=== PATIENT | female | born 1940 | race Two or more races ===

== ENCOUNTER 2021-09-02 16:35 | Inpatient (IN) | payer MEDICARE, MEDICAID ==
[~2021-09-02] VITALS: Ht 162.6 cm; Wt 64.0 kg
[~2021-09-02 16:35] MED LIST: AMLO1TAB15 PO; ASPI-1497 PO; ATOR10TA69 PO; B12 PO; NEBI5TAB3 PO
[2021-09-02 19:51] LABS: HEMATOCRIT. 34.6 % (36.0-48.0); HEMOGLOBIN. 11.2 g/dL (12.0-16.0); MEAN CORPUSCULAR HEMOGLOBIN 28.3 pg (28.0-32.0); MEAN CORPUSCULAR VOLUME 87.5 fL (81.0-99.0); MEAN PLATELET VOLUME 8.4 fl (7.4-10.4); PLATELET 178 x1000/uL (130-400); RED BLOOD CELL COUNT 3.95 mill/uL (4.2-5.4); RED CELL DISTRIBUTION WIDTH 15.6 % (11.6-14.6)
[2021-09-02 20:00] LABS: CHLORIDE 99 mEq/L (98-107)
[2021-09-02 21:09] LABS: PLATELET ESTIMATE NORMAL
[2021-09-03 07:48] LABS: CLARITY URINE CLEAR (CLEAR); COLOR URINE YELLOW (YELLOW); KETONES URINE NEGATIVE (NEGATIVE); LEUKOCYTE ESTERASE URINE NEGATIVE (NEGATIVE); NITRITE URINE NEGATIVE (NEGATIVE); OCCULT BLOOD URINE NEGATIVE (NEGATIVE); PROTEIN URINE NEGATIVE (NEGATIVE); SPECIFIC GRAVITY URINE 1.011 (1.005-1.030)
[2021-09-03] MEDS ORDERED: MAGNESIUM/ALUMINUM HYDROXIDE/SIMETHICONE 30ML UDC PO PRN (11:00)
[2021-09-03] MEDS ORDERED: ONDANSETRON HCL 4MG/2ML INJ IV PRN (11:00)
[2021-09-03] MEDS ORDERED: HYDROCODONE/ACETAMINOPHEN 5/325MG TABLET PO PRN (11:00)
[2021-09-03] MEDS ORDERED: ACETAMINOPHEN 650MG SUPP PR PRN (11:00)
[2021-09-03] MEDS ORDERED: DIPHENHYDRAMINE 50MG/ML VIAL IV PRN (11:00)
[2021-09-03] MEDS ORDERED: CLONIDINE 0.1MG TABLET PO PRN (11:00)
[2021-09-03] MEDS ORDERED: NA PHOS,M-B/NA PHOS,DI-BA ENEMA 118ML PR PRN (11:00)
[2021-09-03] MEDS ORDERED: GUAIFENESIN 200MG/10ML SUGAR FREE UDC PO PRN (11:00)
[2021-09-03] MEDS ORDERED: DOCUSATE SODIUM 100MG CAPSULE PO PRN (11:00)
[2021-09-03] MEDS ORDERED: LORAZEPAM 0.5MG TABLET PO PRN (11:00)
[2021-09-03] MEDS ORDERED: IPRATROPIUM/ALBUTEROL 0.5-3(2.5)MG/3ML NEB NEB PRN (11:00)
[2021-09-03] MEDS ORDERED: ACETAMINOPHEN 325MG TABLET PO PRN (11:00)
[2021-09-03 12:00] VITALS: BP 119/69
[2021-09-03] MEDS: FUROSEMIDE 40MG/4ML VIAL IV SCH (13:08)
[2021-09-03] MEDS: ASPIRIN 81MG EC TABLET PO SCH (13:08)
[2021-09-03] MEDS: ENOXAPARIN 30MG/0.3ML SYR SUBCUT SCH (13:08)
[2021-09-03 15:55] VITALS: BP 119/69
[2021-09-03 16:00] VITALS: BP 104/61
[2021-09-03] MEDS: MEGESTROL ACETATE 400 MG/10 ML UDC PO SCH (17:59)
[2021-09-03 18:31] LABS: INR 1.4; PROTHROMBIN TIME 14.6 sec (9.6-11.0)
[2021-09-03 20:00] VITALS: BP 106/52
[2021-09-03] MEDS ORDERED: FAMOTIDINE 20MG TABLET PO SCH (21:00)
[2021-09-03] MEDS ORDERED: ATORVASTATIN CALCIUM 10MG TABLET PO SCH (21:00)
[2021-09-04] VITALS: BP 124/58
[2021-09-04 02:30] LABS: *AMPHETAMINES SCREEN URINE NEGATIVE (NEGATIVE); *BARBITURATES SCREEN URINE NEGATIVE (NEGATIVE); *BENZODIAZEPINES SCREEN URINE NEGATIVE (NEGATIVE); *COCAINE SCREEN URINE NEGATIVE (NEGATIVE)
[2021-09-04 02:31] LABS: CANNABINOID URINE SCREEN NEGATIVE (NEGATIVE); METHADONE URINE SCREEN NEGATIVE (NEGATIVE); OPIATES URINE SCREEN NEGATIVE (NEGATIVE); PHENCYCLIDINE URINE SCREEN NEGATIVE (NEGATIVE)
[2021-09-04 04:00] VITALS: BP 135/65
[2021-09-04 06:58] LABS: HEMATOCRIT. 33.1 % (36.0-48.0); HEMOGLOBIN. 10.8 g/dL (12.0-16.0); MEAN CORPUSCULAR HEMOGLOBIN 28.6 pg (28.0-32.0); MEAN CORPUSCULAR VOLUME 87.4 fL (81.0-99.0); MEAN PLATELET VOLUME 8.5 fl (7.4-10.4); PLATELET 164 x1000/uL (130-400); RED BLOOD CELL COUNT 3.79 mill/uL (4.2-5.4); RED CELL DISTRIBUTION WIDTH 15.5 % (11.6-14.6)
[2021-09-04 07:03] LABS: CHLORIDE 104 mEq/L (98-107)
[2021-09-04 08:00] VITALS: BP 132/75
[2021-09-04] MEDS: FUROSEMIDE 40MG/4ML VIAL IV SCH (08:15)
[2021-09-04] MEDS: ENOXAPARIN 30MG/0.3ML SYR SUBCUT SCH (08:15)
[2021-09-04] MEDS: ASPIRIN 81MG EC TABLET PO SCH (08:15)
[2021-09-04] MEDS: MEGESTROL ACETATE 400 MG/10 ML UDC PO SCH (08:26)
[2021-09-04] MEDS ORDERED: AMLODIPINE 2.5MG TABLET PO SCH (09:00)
[2021-09-04 10:29] LABS: PLATELET ESTIMATE NORMAL
[2021-09-04 12:00] VITALS: BP 125/55
[2021-09-04] MEDS ORDERED: FURO-151 PO (15:02)
[2021-09-04 15:04] VITALS: BP 125/55
[2021-09-04] MEDS ORDERED: FUROSEMIDE 40MG/4ML VIAL ONE (15:26)
[2021-09-04 15:55] VITALS: BP 137/58
[2021-09-04] MEDS ORDERED: FUROSEMIDE 40MG/4ML VIAL IV SCH (17:00)
[2021-09-04] MEDS ORDERED: APIX2.5T MT (17:28)
== END 2021-09-04 16:25 | disposition home or self-care (01) | DRG 682 ==
LOC: ER 16:35 → MICUSO 22:07 → EDBEDREQ 22:25 → 8WST 09-03 11:10
PROVIDERS: ADMIT Internal Medicine; ATTEND Internal Medicine
DX: N17.9 Acute kidney failure, unspecified (principal); I50.43 Acute on chronic combined systolic (congestive) and diastolic (congestive) heart failure; I13.0 Hypertensive heart and chronic kidney disease with heart failure and stage 1 through stage 4 chronic kidney disease, or unspecified chronic kidney disease; I48.20 Chronic atrial fibrillation, unspecified; E78.00 Pure hypercholesterolemia, unspecified; D64.9 Anemia, unspecified; E78.5 Hyperlipidemia, unspecified; I25.10 Atherosclerotic heart disease of native coronary artery without angina pectoris; I08.1 Rheumatic disorders of both mitral and tricuspid valves; I27.20 Pulmonary hypertension, unspecified; I49.9 Cardiac arrhythmia, unspecified; I70.0 Atherosclerosis of aorta; N18.9 Chronic kidney disease, unspecified; I25.2 Old myocardial infarction; F17.210 Nicotine dependence, cigarettes, uncomplicated; Z79.01 Long term (current) use of anticoagulants; Z79.899 Other long term (current) drug therapy; Z86.73 Personal history of transient ischemic attack (TIA), and cerebral infarction without residual deficits; Z79.82 Long term (current) use of aspirin
CPT/HCPCS: 36415; 71045; 71250; 80048; 80053; 80305; 81003; 82550; 82553; 83880; 84443; 84484; 85025; 87077; 93005; 93306; 93970; 97162; 99285; J1650; J1940

== ENCOUNTER 2021-10-14 16:29 | Emergency (ER) | payer MEDICARE, MEDICAID ==
[~2021-10-14] VITALS: Ht 152.4 cm; Wt 66.0 kg
[~2021-10-14 16:29] MED LIST changes: +APIX2.5T MT; -B12 PO; +FURO-151 PO
[2021-10-14 18:08] LABS: HEMOGLOBIN. 9.2 g/dL (12.0-16.0); MEAN CORPUSCULAR HEMOGLOBIN 27.9 pg (28.0-32.0); MEAN CORPUSCULAR VOLUME 84.7 fL (81.0-99.0); MEAN PLATELET VOLUME 8.1 fl (7.4-10.4); PLATELET 212 x1000/uL (130-400); RED BLOOD CELL COUNT 3.31 mill/uL (4.2-5.4); RED CELL DISTRIBUTION WIDTH 16.4 % (11.6-14.6)
[2021-10-14 18:18] LABS: CHLORIDE 90 mEq/L (98-107)
[2021-10-14 19:29] LABS: PLATELET ESTIMATE NORMAL
[2021-10-14] MEDS ORDERED: FUROSEMIDE 40MG/4ML VIAL IVP ONE (20:45)
[2021-10-15 01:46] VITALS: BP 114/56
== END 2021-10-15 01:58 | disposition short-term general hospital (02) ==
LOC: ER 16:29
DX: I11.0 Hypertensive heart disease with heart failure (principal); I50.9 Heart failure, unspecified; E87.1 Hypo-osmolality and hyponatremia; N17.9 Acute kidney failure, unspecified; I48.91 Unspecified atrial fibrillation; E78.00 Pure hypercholesterolemia, unspecified; Z79.899 Other long term (current) drug therapy; Z20.822 Contact with and (suspected) exposure to COVID-19
CPT/HCPCS: 36415; 71045; 80053; 83880; 84484; 85025; 87426; 93005; 96374; 99291; C9803; J1940